=== PATIENT | male | born 1995 | race Caucasian/White ===

== ENCOUNTER 2019-01-25 08:48 | Emergency (ER) | payer SELFPAY ==
[~2019-01-25] VITALS: Ht 147.3 cm; Wt 63.1 kg
[2019-01-25 08:55] VITALS: BP 138/88; PULSE 89; RESP 17; Ht 147.3 cm; Wt 63.1 kg
[2019-01-25] MEDS ORDERED: ONDANSETRON (ODT) 4 MG TAB ODT STA (09:42)
[2019-01-25] MEDS ORDERED: IBUP-1542 PO ×2 (09:43→12:00)
[2019-01-25] MEDS ORDERED: ONDA4TAB14 PO ×2 (09:43→12:00)
[2019-01-25] MEDS ORDERED: HYDROCODONE/APAP (10/325) TAB PO ONE (10:00)
[2019-01-25] MEDS ORDERED: IBUPROFEN 800 MG TAB PO ONE (10:00)
[2019-01-25] MEDS ORDERED: HYDR-3980 PO (11:43)
[2019-01-25] MEDS ORDERED: TAMS-14 PO (11:43)
[2019-01-25] MEDS ORDERED: NALO4SPR NS (11:43)
--- NOTE | 2019-01-25 14:19 | ERD ---
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 It started 1 hour prior. He had a normal bowel movement today. He is never had this pain before. He has had no treatment as of yet. He has no fevers. He does have some vomiting. He does not currently have a primary doctor. ROS All systems reviewed and are negative except as per history of present illness. Medications Home Meds Active Scripts Ondansetron (Ondansetron Odt) 4 Mg Tab.rapdis, 4 MG PO Q6H PRN for NAUSEA AND/OR VOMITING, #10 TAB Prov:KARI VERGARA MD 01/25/19 Ibuprofen* (Motrin*) 600 Mg Tab, 600 MG PO Q6H PRN for PAIN AND OR ELEVATED TEMP, #30 TAB Prov:KARI VERGARA MD 01/25/19 Tamsulosin Hcl* (Flomax*) 0.4 Mg Cap.er.24h, 0.4 MG PO QPM, #30 CAP Prov:KARI VERGARA MD 01/25/19 Naloxone HCl nasal spray (Narcan 4 mg/0.1 mL nasal) 4 Mg [place], 4 MG NS .Q2-3MIN for OPIOID OVERDOSE, #2 SPRAY 0 Refills [place] 0.1 mL into one nostril. Repeat with second device into other nostril after 2-3 minutes if no or minimal response Prov:KARI VERGARA MD 01/25/19 Hydrocodone/Acetaminophen (Cosmos 10-325 Tablet) 1 Each Tablet, 1 TAB PO Q6H PRN for PAIN, #7 TAB Prov:KARI VERGARA MD 01/25/19 Ondansetron (Ondansetron Odt) 4 Mg Tab.rapdis, 4 MG PO Q6H PRN for NAUSEA AND/OR VOMITING, #10 TAB Prov:KARI VERGARA MD 01/25/19 Ibuprofen* (Motrin*) 600 Mg Tab, 600 MG PO Q6H PRN for PAIN AND OR ELEVATED TEMP, #30 TAB Prov:KARI VERGARA MD 01/25/19 Allergies Allergies: Coded Allergies: No Known Allergy (Unverified , 01/25/19) PMhx/Soc Medical and Surgical Hx: pt denies Medical Hx Hx Neurological Disorder: No Hx Respiratory Disorders: No Hx Cardiac Disorders: No Hx Psychiatric Problems: No Hx Miscellaneous Medical Probl: No Hx Alcohol Use: No Hx Substance Use: No Hx Tobacco Use: No FmHx Family History: diabetes Physical Exam Vitals Vital Signs Date Temp Pulse Resp B/P (MAP) Pulse Ox O2 O2 Flow FiO2 Time Delivery Rate 01/25/19 98.3 89 17 138/88 99 08:55 (105) Physical Exam Const: Moderate distress secondary to pain Head: Atraumatic Eyes: Normal Conjunctiva ENT: Normal External Ears, Nose and Mouth. Neck: Full range of motion. No meningismus. Resp: Clear to auscultation bilaterally Cardio: Regular rate and rhythm, no murmurs Abd: Soft, mild left lower quadrant tenderness palpation without rebound or guarding Skin: No petechiae or rashes Back: No midline or flank tenderness Ext: No cyanosis, or edema Neur: Awake and alert Psych: Normal Mood and Affect Results 24 hrs Laboratory Tests Test 01/25/19 10:11 Bedside Urine pH (LAB) 6.0 Bedside Urine Protein (LAB) Trace Bedside Urine Glucose (UA) Negative Bedside Urine Ketones (LAB) Negative Bedside Urine Blood 3+ Bedside Urine Nitrite (LAB) Negative Bedside Urine Leukocyte Esterase (L Negative Current Medications Medications Dose Sig/Navya Start Time Status Last (Trade) Ordered Route PRN Stop Time Admin Dose Reason Admin Ibuprofen 800 mg ONCE ONCE 01/25/19 DC 01/25/19 (Motrin) PO 10:00 01/25/19 09:51 10:01 Ondansetron 4 mg ONCE STAT 01/25/19 DC 01/25/19 HCl (Zofran ODT 09:42 01/25/19 09:50 Odt) 09:43 1 tab ONCE ONCE 01/25/19 DC 01/25/19 Acetaminophen PO 10:00 01/25/19 10:04 / 10:01 Hydrocodone Bitart (Cosmos (10325)) Procedures/MDM Urine dip shows hematuria. CT scan of the abdomen pelvis shows 3 mm left-sided kidney stone per radiology. Patient is a 23-year-old male who presents with abdominal pain. He was found to have a 3 mm kidney stone. There is no sign of infection and he is otherwise well-appearing. The patient will be discharged with a prescription for ibuprofen, Flomax, Cosmos, and Narcan. The patient will need to follow-up with a primary doctor at the local clinics and Dr. Fallon from urology within 24 to 48 hours for reevaluation. The patient can return for any worsening symptoms. Departure Diagnosis: Primary Impression: Kidney stone Additional Impressions: Abdominal pain Abdominal location: left lower quadrant Qualified Codes: R10.32 - Left lower quadrant pain Vomiting Vomiting type: unspecified Vomiting Intractability: non-intractable Nausea presence: with nausea Qualified Codes: R11.2 - Nausea with vomiting, unspecified Condition: Fair Patient Instructions: Abdominal Pain, Vomiting (6Y-Adult) Referrals: YOAV FALLON MD [facility] YOU HAVE RECEIVED A MEDICAL SCREENING EXAM AND THE RESULTS INDICATE THAT YOU DO NOT HAVE A CONDITION THAT REQUIRES URGENT TREATMENT IN THE EMERGENCY DEPARTMENT. FURTHER EVALUATION AND TREATMENT OF YOUR CONDITION CAN WAIT UNTIL YOU ARE SEEN IN YOUR DOCTORS OFFICE WITHIN THE NEXT 1-2 DAYS. IT IS YOUR RESPONSIBILITY TO MAKE AN APPOINTMENT FOR FOLOW-UP CARE. IF YOU HAVE A PRIMARY DOCTOR --you should call your primary doctor and schedule an appointment IF YOU DO NOT HAVE A PRIMARY DOCTOR YOU CAN CALL OUR PHYSICIAN REFERRAL HOTLINE AT IF YOU CAN NOT AFFORD TO SEE A PHYSICIAN YOU CAN CHOSE FROM THE FOLLOWING [facility] [address] [facility]. [facility] [address] [facility] [facility] [address] [facility] [facility] [address] [facility] [address] [facility]. [facility]. [address] Additional Instructions: Call your primary care doctor TOMORROW for an appointment during the next 1-2 days.See the doctor sooner or return here if your condition worsens before your appointment time. KARI VERGARA MD Jan 25, 2019 14:19
== END 2019-01-25 11:45 | disposition home or self-care (01) ==
LOC: FTE 08:48
DX: N20.0 Calculus of kidney (principal)
CPT/HCPCS: 74176; 81003